=== PATIENT | female | born 1950 | race Caucasian/White ===

== ENCOUNTER 2018-08-27 10:15 | Day surgery (SDC) | payer MEDICARE, OTHER, SELFPAY ==
--- NOTE | 2018-08-24 15:13 | PCM.HP.BLA ---
History and Physical Date of Admission: 08/27/18 HISTORY AND PHYSICAL Nila Foley 1950 PRIMARY PHYSICIAN: Miguel A Pond MD CHIEF COMPLAINT: left breast cancer HPI: The patient is a 68 year old female presents with newly diagnosed left breast cancer US left needle breast biopsy Feb 2017 - benign Complaint of left sided soreness of breast Denies nipple discharge. Denies palpable breast masses. 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 Estrogen Receptor (ER) Positive (99%) Progesterone Receptor (PgR) Negative (<1%) NEGATIVE for HER2 (ERBB2) Expression PAST MEDICAL HISTORY ? Abnormal glandular Papanicolaou smear of cervix 2006 Abn. Pap smear (cervix) ? Arthritis Seen by pain management in the past ? Colon polyps ? Diverticulitis ? Fatty liver ? Fibrocystic breast disease Dr. Major ? Fibromyalgia ? GERD (gastroesophageal reflux disease) ? High cholesterol ? Hypertension ? Irritable bowel syndrome ? Neuropathy (HCC) left foot ? Obesity ? Osteoporosis used to take boniva ? Vaginal dryness PAST SURGICAL HISTORY ? COLONOSCOP W/ OR W/O [facility] SPEC 12/18/2013, 04/2014 Colonoscopy ? COLONOSCOP W/ OR W/O [facility] SPEC 06/25/2018 Colonoscopy ? COLONOSCOPY 2012 ? EGD W/O OR W/BRUSH/WASH 12/25/2013 EGD ? EGD W/O OR W/BRUSH/WASH 06/25/2018 EGD ? HERNIA REPAIR HX 10/23/2014 ? KNEE SCOPE,MENISECTOMY,MED OR LAT Left 03/09/2018 Left knee arthroscopic medial menisectomy and medial chondroplasty ? LAPAROSCOPIC BLADDER REPAIR 10/23/2013 ? LAPAROSCOPIC HEMICOLECTOMY 10/23/2014 And bladder repair ? OFFICE LEEP 2006 unsure exact procedure ? REMOVAL GALLBLADDER 1969 ? REPAIR OF RECTOCELE 1989 ? TREAT ECTOPIC 1974 CURRENT MEDICATIONS DULoxetine (CYMBALTA) 30 mg capsule Take 3 capsules by mouth once daily. traZODone (DESYREL) 100 mg tablet Take 1-2 tablets by mouth at bedtime as needed (for sleep). predniSONE (DELTASONE) 20 mg tablet Take two tablets daily, with lunch. colestipol (COLESTID) 1 gram tablet Take 1 tablet by mouth twice daily. Lactobacillus acidophilus (PROBIOTIC ORAL) Take 1 capsule by mouth once daily. diclofenac, EC, (VOLTAREN) 75 mg EC tablet Take 1 tablet by mouth twice daily. For pain/inflammation. Take with food. clobetasol (TEMOVATE) 0.05 % ointment Apply pea sized amount to area nightly x 2-4 weeks for acute episodes, 1-2x weekly for maintenance losartan (COZAAR) 25 mg tablet Take 1 tablet by mouth once daily. simvastatin (ZOCOR) 10 mg tablet Take 1 tablet by mouth daily at bedtime. Omeprazole (PRILOSEC) 40 mg capsule Take 1 capsule by mouth once daily. ALLERGIES: Levofloxacin; Sulfa (Sulfonamide Antibiotics) PERSONAL HISTORY: Socioeconomic History Marital status: Spouse name: Freddy Number of children: 3 Years of education: 13 Highest education level: Not on file Social Needs Financial resource strain: Not on file Food insecurity - worry: Not on file Food insecurity - inability: Not on file Transportation needs - medical: Not on file Transportation needs - non-medical: Not on file Occupational History Occupation: Retired Tobacco Use Smoking status: Never Smoker Smokeless tobacco: Never Used Substance and Sexual Activity Alcohol use: Yes Comment: Socially Drug use: Yes Types: Crack Cocaine Comment: in the Sexual activity: Yes Partners: Male Comment: Postmenopausal Other Topics Concerns: Not on file Social History Narrative FAMILY HISTORY: ? Osteoporosis Mother ? other (colon polyps) Mother ? Coronary Artery Disease Father 60's ? Heart Father ? other (schizophrenia) Son ? other (alopecia areata) Daughter ? Colon Cancer Maternal Grandfather ? Coronary Artery Disease Brother ? Diabetes Brother ? other (crohns disease) Brother ? other (lung cancer) Maternal Grandmother ? Stroke Paternal Grandmother ? Heart Paternal Grandfather [place] REVIEW OF SYSTEMS: General - denies fevers, feels stressed and tired, has had weight loss of 20# Cardiovascular - had recent nuclear medicine stress test 07/26/16 for chest pain which was negative, denies history of heart attack, complains of chest tightness Pulmonary - has seasonal allergies, denies shortness of breath, denies coughing up blood Gastrointestinal - has alternating constipation and diarrhea, has acid reflux, had colon resection for diverticular disease Neurological - has dysthesias of feet of unknown etiology, denies numbness/weakness of extremities, denies seizures Genitourinary - denies blood in urine, denies burning with urination Hematological - bruises easily, denies spontaneous/prolonged bleeding Skin - denies nonhealing skin wounds Musculoskeletal - has back problems - complains of back pain, has had episode of gout Endocrine - denies diabetes Psychological ? denies hallucinations Obstetrical history ? menarche onset at age 12, 4 para 3 Ab1, first at age 18, breast feeding history for 0 months , menopause at age 44, hormone replacement use for <6 months PHYSICAL EXAMINATION: General: The patient is 68 year old female, well nourished, well hydrated in no acute distress. The patient is oriented to time, place, and person. VITALS: Blood pressure 122/72, pulse 89, temperature 36.6 ?C (97.8 ?F), height 152.4 cm (5'), weight 70.3 kg (155 lb), SpO2 96 %. Body mass index is 30.27 kg/m?. Head ? Normocephalic. EOM intact with sclera clear and no icterus noted. Mouth with mucus membranes moist. Neck - supple with no jugular venous distention noted. Trachea is midline. No carotid bruits noted. No thyroid enlargement or thyroid nodules detected. No masses noted. Chest/breast ? no asymmetry of breasts noted, no suspicious skin lesions noted, no nipple discharge and both nipples everted, Nodular dense breast tissue palpated bilaterally, no suspicious lesions palpated Lungs ? clear to auscultation. Normal breath sounds. No rales/rhonchi/wheezing noted. No labored breathing noted, such as retractions. Heart ? normal S1 and S2 auscultated. No rubs/clicks/murmurs noted. Regular rate. Abdomen ? soft and benign. Normal bowel sounds. No abdominal bruits noted. No distention or tympany noted. Extremities ? no calf tenderness noted. No pitting edema noted. Skin ? normal skin integrity. Lymph ? no cervical adenopathy detected, no supraclavicular adenopathy detected, no axillary adenopathy detected Neurological ? no focal deficit. Psych ? calm and appropriate. LABORATORY VALUES: As Noted RADIOLOGIC STUDIES: As Noted IMPRESSION: left breast cancer PLAN: I have discussed the above with the patient. I have offered surgical options of treatment of the following: mastectomy versus mastectomy with reconstruction versus lumpectomy with radiation. I have also explained to patient that she will require left axillary sentinel lymph node biopsy and explained how this is done to patient with blue and radioactive dy. I have explained the procedures to the patient. I have counseled the patient as to the risks of the procedure, including but not limited to: infection, bleeding, injury to any blood vessels/nerves, scar tissue, seroma, lymph leak, injury to any nerves of the axilla and their sequelae, wound infections, complications of anesthesia, etc. ? the patient understands. The patient wishes to proceed with lumpectomy and sentinel lymph node biopsy I have answered all questions to the patient?s satisfaction and the patient has no further questions.
[2018-08-27] VITALS (7 sets, daily range): BP systolic 116–147; BP diastolic 66–86; PULSE 61–91; RESP 16; TEMP 36.2–37.2; O2SAT 94–99; BMI 30.8
--- NOTE | 2018-08-27 | IMM_PTH ---
PATIENT: LEONARDA MORALES [place] [facility] [place][id number] AGE/SX: 68/F ROOM: RE08/27/[address]: Dr. Marina Major MD : 1950 BED: DIS: 08/27/2018 SPEC #: [id number] RECD: 08/29/18 14:04 STATUS: SEVERINO REQ #: [id number] SOLO: 08/27/18 00:[address]: Marina Major DEPT: IMMUNOHISTOCHEMISTRY RECD BY: Erma Malagon ENTERED: 08/29/18 14:05 SP TYPE: IMMUNO OTHR DR: Dr. Robb Nair MD Tissues: A - Axillary lymph node, NOS B - Axillary lymph node, NOS Procedures: CK7 (add) Pankeratin (initial) Pankeratin (add) PHYSICIAN & INSTITUTION [place] [id number] SPECIMEN INFORMATION: Tissue Source: A - Left axillary sentinel lymph nodes, B - Left axillary sentinel lymph node Clinical Info: Left breast cancer Specimen Number: [id number] A1, A2, B CPT code: 62726 x2, 83506 x4 METHODOLOGY: Deparaffinized sections of prefer/formalin-fixed tissue or PAP/DQ stained slides are incubated with monoclonal/polyclonal antibodies/oligonucleotide probes. Localization is made via biotin free immunoperoxidase method. Appropriate controls are performed and reacted as expected. Results on target cell population are indicated in the following table: RESULTS: ANTIBODY / CLONE RESULT Block A1 AE1-3 (AE1/AE3/PCK26) negative CK7 (OV-TL12/30) negative Block A2 AE1-3 (AE1/AE3/PCK26) negative CK7 (OV-TL12/30) negative Block B AE1-3 (AE1/AE3/PCK26) negative CK7 (OV-TL12/30) negative These tests were developed and their performance characteristics determined by [facility]. They may not have been cleared or approved by the U.S. Food and Drug Administration. The FDA has determined that such clearance or approval is not necessary. INTERPRETATION: A. Left axillary sentinel lymph nodes, biopsy: Four out of four lymph nodes, negative for metastatic carcinoma. B. Left axillary sentinel lymph node, biopsy: One lymph node, negative for metastatic carcinoma. SJ:miguel 08/30/18
--- NOTE | 2018-08-27 | AXNB_PTH ---
PATIENT: LEONARDA MORALES LOC: [facility] [place] [facility] [place][id number] AGE/SX: 68/F ROOM: RE08/27/[address]: Dr. Marina Major MD : 1950 BED: DIS: 08/27/2018 SPEC #: [id number] RECD: 08/27/18 14:44 STATUS: SEVERINO REJacques #: [id number] SOLO: 08/27/18 00:[address]: Marina Major DEPT: SURGICAL PATHOLOGY RECD BY: Erma Malagon ENTERED: 08/27/18 15:40 SP TYPE: AX NODE BX OTHR DR: Dr. Robb Nair MD Tissues: A - Axillary lymph node, NOS B - Axillary lymph node, NOS C - Left breast, NOS Procedures: Frozen Section (charge) Frozen Section Add'l ([facility]) Surgery Specimen Level V HEADER OPERATION: Left breast lumpectomy, SN with Neoprobe PRE-OP DIAGNOSIS: Left breast cancer TISSUE SUBMITTED: A - Left axillary lymph node tissue, frozen section sent at 1439, B - Left sentinel node, frozen section sent at 1448, C - Left breast lumpectomy, two short sutures - posterior, one long suture - lateral, one short suture - superior FROZEN SECTION DIAGNOSIS A. Left axillary sentinel lymph nodes, biopsy: Four out of four lymph nodes, negative for metastatic carcinoma. SJ: 08/27/18 B. Left axillary sentinel lymph node, biopsy: One out of one lymph node, negative for carcinoma. AM: 08/27/18 MICROSCOPIC DIAGNOSIS A. Left axillary sentinel lymph nodes, biopsy: Four out of four lymph nodes, negative for metastatic carcinoma. See comment. B. Left axillary sentinel lymph node, biopsy: One lymph node, negative for metastatic carcinoma. See comment. C. Left breast, lumpectomy with needle localization: Invasive mucinous carcinoma (colloid carcinoma). See cancer summary below. : 08/29/18 INVASIVE BREAST CANCER SUMMARY: (Including specimens A, B & C) Specimen - partial breast Procedure - excision with wire-guided localization Lymph node sampling - sentinel lymph nodes Specimen integrity - single intact specimen Specimen size - 7 x 5 x 2.2 cm Specimen laterality - left Tumor site - not specified Tumor size - 1.5 x 1 cm (measured microscopically). See comment. Tumor focality - single focus of invasive carcinoma Macroscopic and Microscopic extent of tumor: Skin - skin is not present Nipple - not applicable Skeletal muscle - no skeletal muscle present Ductal carcinoma in situ (DCIS) - no DCIS is present. Lobular carcinoma in situ (LCIS) - not identified Histologic type of invasive carcinoma - invasive mucinous carcinoma (colloid carcinoma) Histologic Grade (Nicole grade): Glandular/tubular differentiation - score 2 Nuclear pleomorphism - score 1 Mitotic count - score 1 Overall grade - 1 (score of 4) Margins - The margins are uninvolved by invasive carcinoma. The tumor is 0.4 cm away from the closest inferior margin. Treatment effect: Response to presurgical (neoadjuvant) therapy - no known presurgical therapy. Lymph-Vascular invasion - not identified Dermal lymph-vascular invasion - not applicable Lymph nodes: Number of sentinel lymph nodes examined - 5 Total number of lymph nodes examined (sentinel and nonsentinel) - 5 Number of lymph nodes with macrometastases, micrometastases and isolated tumor cells - 0 Method of evaluation of sentinel lymph nodes - H & E, multiple levels and IHC. Distant metastasis - not applicable Additional pathologic findings - focal intraductal hyperplasia without atypia. - Changes consistent with previous biopsy site. Ancillary studies - previously performed at [facility] ([id number]) ER - positive (99%, strong) TN - negative (<1%) Her2 vega - negative (1+) Her2 by dual GIOVANNY - not performed Microcalcifications - not identified Clinical history - Please make reference to previous specimen from [facility] ([id number]), left breast, ultrasound-guided core biopsy with diagnosis of invasive ductal carcinoma with mucinous and focal micropapillary features, nuclear grade 2. PATHOLOGIC STAGE: pT1c pN0(sn) Mx The above summary is in compliance with [employer] (CAP) Cancer Protocols Checklist and [place] Joint Committee on Cancer (AJCC), Staging Manual, 8th Ed. COMMENT A & B - The lymph nodes are negative for metastatic carcinoma on multiple H & E levels and immuno-histochemical stains for cytokeratins ([id number]). B. The tumor size is slightly larger than gross measurement.. Case has been reviewed in consultation with Dr. Schmidt who concurs with the above diagnosis. IDC:AM MICROSCOPIC DESCRIPTION Slides are reviewed. GROSS DESCRIPTION A - Received fresh for frozen section diagnosis labeled with the patient's name is a specimen designated left axillary sentinel lymph nodes. The specimen consists of two irregular fragments of stephens-yellow adipose tissue containing nodule measuring that in aggregate measure 4.5 x 2 x 1 cm. Sections reveal four small lymph nodes measuring 0.5 to 1 cm in greatest dimension. The entire specimen is submitted in three cassettes as follows: 1 - frozen section, two lymph nodes, one lymph node inked black, 2 - frozen section, two lymph nodes, one lymph node inked black, 3 - rest of the specimen. / SJ: 08/27/18 B - Received fresh for frozen section diagnosis labeled with the patient's name is a specimen designated left sentinel lymph node. The specimen consists of a piece of fatty tissue measuring 3 x 2 x 1 cm. A lymph node is identified measuring 2 cm in greatest dimension. The specimen is bisected and submitted entirely in one cassette for frozen section diagnosis. / AM: 08/27/18 C - Received fresh for frozen section consultation labeled with the patient's name is a specimen designated left breast lumpectomy. The specimen consists of an irregular fragment of oriented, stephens-yellow fatty tissue measuring 7 x 5 x 2.2 cm and weighing 35.4 gm. The specimen is differentially inked as follows: anterior - yellow, posterior - black, superior - blue, inferior - green, medial - red and lateral - blue. The specimen is serially sectioned to reveal a biopsy cavity measuring 1.2 x 0.8 cm. Adjacent to this is an irregular white mass measuring 1.2 x 1 x 0.6 cm. This mass is located 0.5 cm from its closest (inferior) margin of resection. The proximity of the lesion to this closest margin is conveyed to the surgeon intraoperatively. The remainder of the breast parenchyma is yellow, fatty and interrupted focally by white, fibrous streaks. No other mass lesions are identified. Technician Helper Instrument sections are submitted in 12 cassettes as follows: 1 & 2 - perpendicular inked margins, 3-5 - tumor, 6 - biopsy cavity, 7-12 - technical sales representative sections of breast parenchyma close to and away from lesion. AM:miguel 08/28/18 TC:0 CPT: 55636 x3, 39150 x2, 29795, 62956
--- NOTE | 2018-08-27 09:39 | BI_ITS ---
SURGICAL BREAST SPECIMEN RADIOGRAPH CLINICAL: Document presence of tissue clip marker in biopsy specimen. FINDINGS: Specimen shows presence of tissue clip marker. Electronically Signed: Jamie Ramsey, at 15:42 EDT , Service support , BI/Breast Biopsy Specimen
--- NOTE | 2018-08-27 11:00 | NM_ITS ---
PROCEDURE: NUCLEAR MEDICINE Injection [place] Node - LEFT breast(s). REASON FOR EXAM: Female, 68 years old. Left breast cancer. TECHNIQUE: [place] node localization using radionuclide methods of the LEFT breast(s) was performed following subcutaneous administration of 1.2 mCi of of sulfur colloid Tc-99m. FINDINGS: 1.2 mCi of technetium labeled sulfur colloid was injected subcutaneously in the upper mid inner aspect of the left breast for sentinel node imaging. NM/Lymph Node Injection Only IMPRESSION: Subcutaneous injection of 1.2 mCi of Tc labeled sulfur colloid as described. Electronically Signed: Jamie Ramsey, at 12:21 EDT , Service support ,
[2018-08-27] MEDS: Bupiv/Epi 0.25% 30 ML Vial (13:25)
--- NOTE | 2018-08-27 13:54 | PCM.DC.BS ---
Discharge Diet: No Restrictions Discharge Activity: Return to Normal Activity, May not drive while taking narcotic pain medications. Lifting Restrictions: no lifting greater than 10 pounds with left arm Call your doctor if your incision/area has: Continuous Slow Oozing, Foul Smelling Discharge Call your doctor if you observe: Fever of 101 or Higher Additional Dressing/Incision Instructions:: Leave dressings in place. May get wet in shower. Do not soak - no tub baths/swimming. Do wear a bra during the day Allergies/Adverse Reactions: Allergies levofloxacin [From Levaquin] Allergy (Verified 08/27/18 10:47) Hives Sulfa (Sulfonamide Antibiotics) Allergy (Verified 08/27/18 10:47) Hives Medications to take at Discharge Duloxetine HCl 90 mg PO DAILY 08/24/18 Losartan Potassium [Cozaar] 25 mg PO DAILY 08/24/18 Omeprazole [Prilosec] 40 mg PO QHS 08/24/18 Simvastatin [Zocor] 10 mg PO QHS 08/24/18 traZODone [Desyrel] 100 mg PO QHS 08/24/18 Hydrocodone/Acetaminophen [[place] 5-325 Tablet] 1 ea PO Q8 PRN #5 tab 08/27/18 The following prescriptions were given: Hydrocodone/Acetaminophen [[place] 5-325 Tablet] 1 ea PO Q8 PRN #5 tab PRN Reason: Mod-Severe Pain (4-10/10) Primary Care Physician: Robb Nair MD [Primary Care Provider] - Please Follow Up With: Marina Major MD - call When: to be seen on August 31, please call for time, thank you
[2018-08-27] MEDS: Cefazolin 2 GM in 0.9% Normal Saline 100 ML IV (13:56)
--- NOTE | 2018-08-27 13:57 | DCINST_ITS ---
Discharge Diet: No Restrictions Discharge Activity: Return to Normal Activity, May not drive while taking narcotic pain medications. Lifting Restrictions: no lifting greater than 10 pounds with left arm Call your doctor if your incision/area has: Continuous Slow Oozing, Foul Smelling Discharge Call your doctor if you observe: Fever of 101 or Higher Additional Dressing/Incision Instructions:: Leave dressings in place. May get wet in shower. Do not soak - no tub baths/swimming. Do wear a bra during the day Allergies/Adverse Reactions: Allergies levofloxacin [From Levaquin] Allergy (Verified 08/27/18 10:47) Hives Sulfa (Sulfonamide Antibiotics) Allergy (Verified 08/27/18 10:47) Hives Medications to take at Discharge Duloxetine HCl 90 mg PO DAILY 08/24/18 Losartan Potassium [Cozaar] 25 mg PO DAILY 08/24/18 Omeprazole [Prilosec] 40 mg PO QHS 08/24/18 Simvastatin [Zocor] 10 mg PO QHS 08/24/18 traZODone [Desyrel] 100 mg PO QHS 08/24/18 Hydrocodone/Acetaminophen [[place] 5-325 Tablet] 1 ea PO Q8 PRN #5 tab 08/27/18 The following prescriptions were given: Hydrocodone/Acetaminophen [[place] 5-325 Tablet] 1 ea PO Q8 PRN #5 tab PRN Reason: Mod-Severe Pain (4-10/10) Primary Care Physician: Robb Nair MD [Primary Care Provider] - Please Follow Up With: Marina Major MD - call When: to be seen on August 31, please call for time, thank you
--- NOTE | 2018-08-27 13:57 | PCM.OPRPT ---
Report of Operation Date of Procedure: 08/27/18 Pre-Operative Diagnosis: left breast cancer - upper central Post-Operative Diagnosis: same as above, sentinel lymph nodes negative Surgery/Procedure Performed:: left breast lumpectomy via wire localization, left axillary sentinel lymph node biopsy Description of Surgical Findings:: upper central aspect of breast with palpable mass once skin incised - lumpectomy done, 5 out of 5 lymph nodes negative for metastatic disease, closest margin is 0.5 cm inferiorly Anesthesiologist: Hilario Roy Specimen's removed: left breast tissue, left axillary lymph node tissue Estimated Blood Loss (mL): 15 ml Fluids Replaced: 1100 cc RL Description of Procedure: After informed consent was given, the patient was brought into the Breast Stereotactic Radiology suite. Appropriate time out protocol was followed. She was then placed in the prone position on the Sánchez stereotactic table. The patient?s left breast was placed in the opening at the head of the table. A blueprinting and photocopy supervisor compression mammogram was then obtained. The marker clip that was previously placed was identified. Stereo pictures of the lesion were then taken for XYZ coordinates. The Kopans needle was then positioned where it would be entering into the patient?s breast. The skin at this site was then cleansed with a surgical skin preparation. The skin and subcutaneous tissues at this site were then infiltrated with 1% xylocaine. The Kopans needle was then positioned into the patient?s breast at the proper coordinates of depth. A blueprinting and photocopy supervisor film was obtained which revealed the wire in proper position. The patient was then placed in the supine position and the wire was taped into place. A unilateral mammogram in the CC and MLO view were then taken for use in the OR. The patient tolerated this portion of the procedure well and was brought to the AC awaiting surgery in the OR. The patient was then brought to the Operating Room and placed on the operating table in the supine position. Appropriate time out protocol was followed. She was then placed under general anesthesia. 2 cc of lymphozurin blue dye diluted 50:50 was then injected into the periareolar area and around the biopsy cavity with a 25 g needle. Gentle massage was then done for a few minutes. The patient's left chest and neck area was then prepped with a sterile surgical skin preparation and appropriate sterile surgical drapes were placed. A skin incision was made in the inferior portion of the hair bearing area of the left axilla. It was carried through to the subcutaneous tissues using electrocautery. Any hemorrhage was controlled with electrocautery. A Weitlaner retractor was used for increased operative exposure. The Neoprobe device was brought into the operative field. The 10 second count over the tumor site was in the 900s. The 10 second count over the liver was 0. The blue lymphatic vessels were then followed by blunt dissection until blue colored lymph noreen tissue was identified. This tissue was from the surrounding tissue by blunt dissection and the vascular pedicles ligated with hemoclips. The lymph noreen tissue was then checked with the Neoprobe. The 10 second count was 54. There was also a large palpable lymph node that was noted in the axilla. It was also dissected free. The 10 second count of this tissue was 35. The tissue was forwarded to pathology. Frozen section revealed 5 out 5 lymph nodes negative for metastatic disease. The Neoprobe was placed in the axillary space and the 10 second count was 1. Hemostasis was controlled with electrocautery. Nicholas was placed in the axillary cavity. The deep tissues were approximated with 2-0 vicryl suture. The skin edges were reapproximated with 3-0 vicryl suture in a horizontal mattress fashion and then further closed with running 4-0 monocryl in a subcuticular fashion. Cavilon and steristrips were then placed to reinforce the skin closure and proper sterile dressings were applied. A wire had already been placed in the stereotactic biopsy room in the radiology department as described above. A transverse curvilinear skin incision was then made with a 15 blade scalpel in the upper aspect of the breast. It was then carried down through to the subcutaneous tissues. Hemostasis was controlled with electrocautery. The wire was then palpated out and brought into the wound from outside. The breast tissue surrounding the wire was then carefully palpated out and from the surrounding tissues using electrocautery. The breast tissue, once from the breast, was then forwarded to the radiology department, where a specimen mammogram revealed that the marker clip was within the specimen. The breast tissue was then forwarded to pathology for analysis. Pathology review revealed that the closest margin was inferior with a measurement of 5mm. The wound cavity was carefully examined. No further suspicious tissue was palpated or visualized. Hemostasis was carefully controlled with electrocautery. The subdermal tissues were then approximated with vicryl suture. The incision was then reapproximated close using running monocryl suture. Dermibond was then placed to reinforce the skin closure. A sterile dressing was then applied. The patient was then brought to the Recovery Room in stable condition. - Complications none noted - Admit VTE Documentation VTE Present on Admission: Yes VTE Mechan Device Prophylaxis: SCD's
[2018-08-27] MEDS: Isosulfan Blue 1% 5 ML Vial (14:05)
[2018-08-27] MEDS: HYDROcodone Bitartrate/Apap 5/325 Tablet PO (16:55)
== END 2018-08-27 17:59 | disposition home or self-care (01) ==
LOC: SDC 10:17 → AC 10:20
PROVIDERS: Family Provider Family Medicine; PCP Family Medicine; Referring Provider Surgery; Visit Provider Surgery
PROC: (CPT 19301; principal; 2018-08-27 12:45)
DX: C50.112 Malignant neoplasm of central portion of left female breast (principal); C77.3 Secondary and unspecified malignant neoplasm of axilla and upper limb lymph nodes; I10 Essential (primary) hypertension; E78.00 Pure hypercholesterolemia, unspecified; M79.7 Fibromyalgia; K58.9 Irritable bowel syndrome, unspecified; M19.90 Unspecified osteoarthritis, unspecified site; M81.0 Age-related osteoporosis without current pathological fracture; K21.9 Gastro-esophageal reflux disease without esophagitis; F41.9 Anxiety disorder, unspecified; E66.9 Obesity, unspecified; Z68.30 Body mass index [BMI] 30.0-30.9, adult; Z79.899 Other long term (current) drug therapy; Z78.0 Asymptomatic menopausal state; Z86.010 Personal history of colon polyps; Z87.19 Personal history of other diseases of the digestive system
CPT/HCPCS: 19302; 38900; 19281; 38792; 76098; 88305; 88307; 88331; 88332; 88341; 88342; A9541; J7120; A4216; J2405; J3490; Q9968